=== PATIENT | male | born 1945 | race Caucasian/White ===

== ENCOUNTER 2016-05-10 09:12 | Day surgery (SDC) | payer MEDICARE, OTHER ==
[~2016-05-10] VITALS: Ht 177.8 cm; Wt 29.2 kg
[~2016-05-10 09:12] MED LIST: ASPIR-LOW81 MG PO; CEPHALEXIN500 M1 PO; CHANTIX1 MG PO; COMBIVENT INH14.7 GM IH; FLOMAX 0.40.4 MG/CAP PO; FORADIL IH; GENTAMICIN180 MG/501 NS; LIPITOR20 MG PO; MULTIVITAMIN PO; RT ADVAIR 228 DISKUS IH; SPIRIVA INH IH; ZYRTEC 10MG10 MG PO
[2016-05-10] MEDS ORDERED: COMBIRESP IH (10:28)
[2016-05-10 10:38] VITALS: BP 106/60; PULSE 76; TEMP 97.6
[2016-05-10] MEDS ORDERED: CARDIZEM CD 12120 MG PO (10:45)
[2016-05-10] MEDS ORDERED: SPIRIVA RE2.5 MCG/Ac IH (10:46)
[2016-05-10] MEDS ORDERED: ZITHROMAX 250M250 MG PO (10:49)
[2016-05-10] MEDS ORDERED: SALINE 45 ML45 ML NS (10:49)
[2016-05-10] MEDS ORDERED: ELIQUIS 5MG PO (10:50)
[2016-05-10 12:20] VITALS: BP 129/59; PULSE 80; TEMP 97.2
[2016-05-10 12:30] VITALS: BP 102/59; PULSE 80
[2016-05-10 12:45] VITALS: BP 106/52; PULSE 80
[2016-05-10 13:51] VITALS: BP 99/66; PULSE 80
== END 2016-05-10 13:07 | disposition home or self-care (01) ==
LOC: SDCO 09:12
DX: R06.02 Shortness of breath (principal); R05 Cough; R91.8 Other nonspecific abnormal finding of lung field; J44.9 Chronic obstructive pulmonary disease, unspecified; Z87.891 Personal history of nicotine dependence
CPT/HCPCS: J2704; J7030

== ENCOUNTER 2016-06-08 14:06 | Inpatient (IN) | payer MEDICARE, OTHER ==
[~2016-06-08] VITALS: Ht 177.8 cm; Wt 60.8 kg
[~2016-06-08 14:06] MED LIST changes: +CARDIZEM CD 12120 MG PO; +COMBIRESP IH; +ELIQUIS 5MG PO; +SALINE 45 ML45 ML NS; +SPIRIVA RE2.5 MCG/Ac IH; +ZITHROMAX 250M250 MG PO
[2016-06-08 15:10] VITALS: BP 137/74; PULSE 60
[2016-06-08] MEDS ORDERED: BREO IH (15:32)
[2016-06-08] MEDS ORDERED: SPIRIVA RE2.5 MCG/Ac IH (15:33)
[2016-06-08 17:22] LABS: ARTERIAL BLD GAS O2 SATURATION 96.5 % (92-100); ARTERIAL BLD GAS TCO2 CT 26.6; ARTERIAL BLOOD GAS BASE EXCESS 1.6 (-2-2); ARTERIAL BLOOD GAS HCO3 25.4 meq/L (22-26); ARTERIAL BLOOD GAS PHT 7.45 C (7.35-7.45); ARTERIAL BLOOD GAS PO2 83.2 mmHg (80-100); ARTERIAL BLOOD GAS PO2T 83.2 (80-100); ARTERIAL BLOOD GAS pH 7.45 (7.35-7.45); OXYHEMOGLOBIN 95.1 %
[2016-06-08 17:24] LABS: ALLEN TEST YES; ALLENS TEST RESULT PASS; ATS? YES
[2016-06-08 18:28] LABS: INFLUENZA B NEGATIVE
[2016-06-08 20:55] VITALS: BP 109/65; PULSE 81; TEMP 98.2
[2016-06-09] VITALS (7 sets, daily range): BP systolic 94–124; BP diastolic 55–78; PULSE 62–86; TEMP 97.4–98.6
[2016-06-10 04:10] VITALS: BP 97/57; PULSE 80; TEMP 97.7
[2016-06-10 07:40] VITALS: BP 106/70; PULSE 70; TEMP 97.5
[2016-06-10] MEDS ORDERED: LEVAQUIN 750MG750 M1 PO (10:39)
[2016-06-10] MEDS ORDERED: MUCINEX DM 30 M1 TE1 PO (10:40)
[2016-06-10] MEDS ORDERED: FLONASE NASAL S16 GM NS (10:41)
[2016-06-10] MEDS ORDERED: PREDNISONE20 MG PO (10:43)
[2016-06-10 11:40] VITALS: BP 104/58; PULSE 84; TEMP 97.5
== END 2016-06-10 14:00 | disposition home or self-care (01) | DRG 190 ==
LOC: MEDICAL 14:06
PROVIDERS: Internal Medicine
DX: J44.1 Chronic obstructive pulmonary disease with (acute) exacerbation (principal); J18.9 Pneumonia, unspecified organism; N40.0 Benign prostatic hyperplasia without lower urinary tract symptoms; I48.0 Paroxysmal atrial fibrillation; J84.10 Pulmonary fibrosis, unspecified; Z95.5 Presence of coronary angioplasty implant and graft; Z87.891 Personal history of nicotine dependence
CPT/HCPCS: 99232-AI; 99239; J0456; J0696; J2930; J7050

== ENCOUNTER 2017-06-11 12:12 | Inpatient (IN) | payer MEDICARE, OTHER ==
[2017-06-11] VITALS (496 sets, daily range): BP systolic 99–110; BP diastolic 66–73; PULSE 80–110; TEMP 97.5–97.9; O2SAT 81–100
[~2017-06-11] VITALS: Ht 177.8 cm; Wt 70.4 kg
[~2017-06-11 12:12] MED LIST changes: +BREO IH; +FLONASE NASAL S16 GM NS; +LEVAQUIN 750MG750 M1 PO; +MUCINEX DM 30 M1 TE1 PO; +PREDNISONE20 MG PO
[2017-06-11 15:58] LABS: BASO % 0.1 % (0.0-2.0); GRAN # 10.2 (1.4-6.5); GRAN % 88.7 % (42.2-75.2); HEMOGLOBIN 12.4 g/dl (13.5-18.0); LYMPH # 0.4 (1.2-3.4); MEAN CELL VOLUME 96 fl (80.0-100.0); MEAN CORPUSCULAR HEMOGLOBIN 33 pg (27.0-31.0); MEAN CORPUSCULAR HGB CONC 34 g/dl (33.0-37.0); MEAN PLATELET VOLUME 8.9 fl (7.4-10.4); MONO # 0.8 (0.1-0.6); MONO % 6.9 % (1.7-9.3); PLATELET COUNT 213 K/mm3 (130-400); RED BLOOD COUNT 3.79 M/mm3 (4.20-5.60); REDCELL DISTRIBUTION WIDTH-CV 12.4 % (11.5-14.5)
[2017-06-11 15:59] LABS: HEMATOCRIT 36.4 % (42.0-52.0)
[2017-06-11 16:03] LABS: INR 1.9 (0.8-3.0)
[2017-06-11 16:05] LABS: PARTIAL THROMBOPLASTIN TIME 30.5 SECONDS (26.0-37.0)
[2017-06-11 16:10] LABS: BILIRUBIN,TOTAL 0.6 mg/dL (0.0-1.0); CALCIUM 8.4 mg/dL (8.4-10.2); CREATININE, serum 0.62 mg/dL (0.66-1.25); MAGNESIUM 1.9 mg/dL (1.6-2.3); PHOSPHOROUS 2.5 mg/dL (2.5-4.5); POTASSIUM 5.2 mmol/L (3.4-5.0); TOTAL PROTEIN 5.2 gm/dL (6.4-8.2)
[2017-06-11 16:21] LABS: ARTERIAL BLD GAS O2 SATURATION 99.4 % (92-100); ARTERIAL BLD GAS TCO2 CT 29.2; ARTERIAL BLOOD GAS BASE EXCESS 3.5 (-2-2); ARTERIAL BLOOD GAS PO2 540.2 mmHg (80-100); ARTERIAL BLOOD GAS pH 7.44 (7.35-7.45)
[2017-06-11] MEDS ORDERED: COMBIRESP IH (17:42)
[2017-06-11] MEDS ORDERED: VITAMIN D31000 I1 PO (17:43)
[2017-06-11] MEDS ORDERED: ZITHROMAX 250M250 MG PO (17:45)
[2017-06-11] MEDS ORDERED: PROAIR HFA0.09 MG/AC IH (17:55)
[2017-06-11 18:09] LABS: ARTERIAL BLD GAS O2 SATURATION 98.4 % (92-100); ARTERIAL BLD GAS TCO2 CT 25.2; ARTERIAL BLOOD GAS BASE EXCESS -0.7 (-2-2); ARTERIAL BLOOD GAS PCO2 39.6 mmHg (35-45); ARTERIAL BLOOD GAS PO2 147.4 mmHg (80-100)
[2017-06-11 22:15] LABS: CREATININE, serum 0.66 mg/dL (0.66-1.25); POTASSIUM 5.5 mmol/L (3.4-5.0)
[2017-06-12] VITALS (1063 sets, daily range): BP systolic 70–109; BP diastolic 53–82; PULSE 51–89; TEMP 97.5–98.4; O2SAT 82–100
[2017-06-12 05:13] LABS: ARTERIAL BLD GAS O2 SATURATION 97.9 % (92-100); ARTERIAL BLD GAS TCO2 CT 25.6; ARTERIAL BLOOD GAS BASE EXCESS -1.3 (-2-2); ARTERIAL BLOOD GAS HCO3 24.2 meq/L (22-26); ARTERIAL BLOOD GAS PCO2 43.7 mmHg (35-45); ARTERIAL BLOOD GAS PO2 120.1 mmHg (80-100); ARTERIAL BLOOD GAS pH 7.36 (7.35-7.45)
[2017-06-12 05:58] LABS: CREATININE, serum 0.63 mg/dL (0.66-1.25); MAGNESIUM 1.9 mg/dL (1.6-2.3); PHOSPHOROUS 3.2 mg/dL (2.5-4.5)
[2017-06-13] VITALS (1005 sets, daily range): BP systolic 107–131; BP diastolic 57–80; PULSE 54–77; TEMP 97.8–98.7; O2SAT 76–100
[2017-06-13 04:47] LABS: ARTERIAL BLD GAS O2 SATURATION 98.3 % (92-100); ARTERIAL BLD GAS TCO2 CT 24.5; ARTERIAL BLOOD GAS BASE EXCESS -1.7 (-2-2); ARTERIAL BLOOD GAS HCO3 23.3 meq/L (22-26); ARTERIAL BLOOD GAS PCO2 40.4 mmHg (35-45); ARTERIAL BLOOD GAS pH 7.38 (7.35-7.45)
[2017-06-13 04:59] LABS: ARTERIAL BLOOD GAS PO2 136.5 mmHg (80-100)
[2017-06-13 05:27] LABS: MEAN CELL VOLUME 98 fl (80.0-100.0); MEAN CORPUSCULAR HGB CONC 34 g/dl (33.0-37.0); MEAN PLATELET VOLUME 9.4 fl (7.4-10.4); PLATELET COUNT 216 K/mm3 (130-400); RED BLOOD COUNT 3.47 M/mm3 (4.20-5.60); REDCELL DISTRIBUTION WIDTH-CV 12.8 % (11.5-14.5)
[2017-06-13 05:32] LABS: HEMATOCRIT 34.1 % (42.0-52.0); HEMOGLOBIN 11.5 g/dl (13.5-18.0); MEAN CORPUSCULAR HEMOGLOBIN 33 pg (27.0-31.0)
[2017-06-13 05:38] LABS: CALCIUM 7.9 mg/dL (8.4-10.2); CREATININE, serum 0.82 mg/dL (0.66-1.25); MAGNESIUM 2.2 mg/dL (1.6-2.3); PHOSPHOROUS 3.5 mg/dL (2.5-4.5)
[2017-06-13 05:42] LABS: BAND 13 % (0-10); LYMPHOCYTE 3 % (20.0-51.0); NEUTROPHILS 82 % (42.0-75.2); PLATELET ESTIMATE NORMAL (NORMAL)
[2017-06-13 05:45] LABS: PRE ALBUMIN 17.5 mg/dL (17.6-36.0)
[2017-06-14] VITALS (1411 sets, daily range): BP systolic 103–128; BP diastolic 64–83; PULSE 55–99; TEMP 97.8–99.4; O2SAT 95–100
[2017-06-14 05:17] LABS: ARTERIAL BLD GAS O2 SATURATION 97.9 % (92-100); ARTERIAL BLD GAS TCO2 CT 27.5; ARTERIAL BLOOD GAS BASE EXCESS -0.8 (-2-2); ARTERIAL BLOOD GAS HCO3 25.9 meq/L (22-26); ARTERIAL BLOOD GAS PCO2 51.6 mmHg (35-45); ARTERIAL BLOOD GAS pH 7.32 (7.35-7.45)
[2017-06-14 05:19] LABS: ARTERIAL BLOOD GAS PO2 131.3 mmHg (80-100)
[2017-06-14 05:44] LABS: CALCIUM 8.1 mg/dL (8.4-10.2); CREATININE, serum 0.72 mg/dL (0.66-1.25); MAGNESIUM 2.4 mg/dL (1.6-2.3)
[2017-06-14 20:22] LABS: ARTERIAL BLD GAS O2 SATURATION 97.8 % (92-100); ARTERIAL BLD GAS TCO2 CT 26.8; ARTERIAL BLOOD GAS BASE EXCESS -0.1 (-2-2); ARTERIAL BLOOD GAS HCO3 25.4 meq/L (22-26); ARTERIAL BLOOD GAS PCO2 45.2 mmHg (35-45); ARTERIAL BLOOD GAS PO2 118.3 mmHg (80-100); ARTERIAL BLOOD GAS pH 7.37 (7.35-7.45)
[2017-06-15] VITALS (1402 sets, daily range): BP systolic 104–141; BP diastolic 60–84; PULSE 52–130; TEMP 97.9–99.6; O2SAT 94–100
[2017-06-15 05:11] LABS: ARTERIAL BLD GAS O2 SATURATION 97.9 % (92-100); ARTERIAL BLD GAS TCO2 CT 29.5; ARTERIAL BLOOD GAS PCO2 49.5 mmHg (35-45); ARTERIAL BLOOD GAS PO2 126.2 mmHg (80-100); ARTERIAL BLOOD GAS pH 7.37 (7.35-7.45)
[2017-06-15 05:28] LABS: MEAN CELL VOLUME 98 fl (80.0-100.0); MEAN CORPUSCULAR HGB CONC 33 g/dl (33.0-37.0); MEAN PLATELET VOLUME 9.6 fl (7.4-10.4); PLATELET COUNT 218 K/mm3 (130-400); RED BLOOD COUNT 3.43 M/mm3 (4.20-5.60)
[2017-06-15 05:33] LABS: HEMATOCRIT 33.6 % (42.0-52.0); HEMOGLOBIN 11.2 g/dl (13.5-18.0); MEAN CORPUSCULAR HEMOGLOBIN 33 pg (27.0-31.0)
[2017-06-15 05:39] LABS: ALBUMIN 2.6 gm/dL (3.5-5.0); BILIRUBIN,TOTAL 0.1 mg/dL (0.0-1.0); CREATININE, serum 0.82 mg/dL (0.66-1.25); POTASSIUM 4.8 mmol/L (3.4-5.0); TOTAL PROTEIN 4.8 gm/dL (6.4-8.2)
[2017-06-15 06:08] LABS: ANISOCYTOSIS 2+; BAND 1 % (0-10); LYMPHOCYTE 6 % (20.0-51.0); NEUTROPHILS 93 % (42.0-75.2); PLATELET ESTIMATE NORMAL (NORMAL)
[2017-06-16] VITALS (969 sets, daily range): BP systolic 112–147; BP diastolic 21–83; PULSE 60–144; TEMP 97.3–97.4; O2SAT 74–100
[2017-06-16 05:10] LABS: ARTERIAL BLD GAS O2 SATURATION 88.7 % (92-100); ARTERIAL BLD GAS TCO2 CT 26.4; ARTERIAL BLOOD GAS HCO3 24.9 meq/L (22-26); ARTERIAL BLOOD GAS PCO2 46.5 mmHg (35-45); ARTERIAL BLOOD GAS PO2 58.4 mmHg (80-100); ARTERIAL BLOOD GAS pH 7.35 (7.35-7.45)
[2017-06-16 05:50] LABS: HEMATOCRIT 37.4 % (42.0-52.0); HEMOGLOBIN 12.3 g/dl (13.5-18.0); MEAN CELL VOLUME 99 fl (80.0-100.0); MEAN CORPUSCULAR HEMOGLOBIN 33 pg (27.0-31.0); MEAN CORPUSCULAR HGB CONC 33 g/dl (33.0-37.0); MEAN PLATELET VOLUME 9.8 fl (7.4-10.4); PLATELET COUNT 269 K/mm3 (130-400); RED BLOOD COUNT 3.79 M/mm3 (4.20-5.60); REDCELL DISTRIBUTION WIDTH-CV 13.2 % (11.5-14.5)
[2017-06-16 06:01] LABS: CALCIUM 8.3 mg/dL (8.4-10.2); CREATININE, serum 0.77 mg/dL (0.66-1.25); POTASSIUM 4.6 mmol/L (3.4-5.0)
[2017-06-16 06:09] LABS: BAND 6 % (0-10); LYMPHOCYTE 6 % (20.0-51.0); NEUTROPHILS 86 % (42.0-75.2); PLATELET ESTIMATE NORMAL (NORMAL)
== END 2017-06-18 06:08 | disposition expired | DRG 208 ==
LOC: IMCU 12:12 → ICU 13:05 → MEDICAL 06-16 17:20
PROVIDERS: Family Medicine; Internal Medicine Pulmonary Disease
PROC: 5A1945Z Respiratory Ventilation, 24-96 Consecutive Hours (ICD-10-PCS; principal; 2017-06-11)
PROC: 5A2204Z Restoration of Cardiac Rhythm, Single (ICD-10-PCS; 2017-06-12)
DX: J96.01 Acute respiratory failure with hypoxia (principal); J18.9 Pneumonia, unspecified organism; J44.1 Chronic obstructive pulmonary disease with (acute) exacerbation; G72.81 Critical illness myopathy; I48.92 Unspecified atrial flutter; E44.0 Moderate protein-calorie malnutrition; J44.0 Chronic obstructive pulmonary disease with (acute) lower respiratory infection; Z66 Do not resuscitate; Z51.5 Encounter for palliative care; J96.02 Acute respiratory failure with hypercapnia; I25.10 Atherosclerotic heart disease of native coronary artery without angina pectoris; E87.5 Hyperkalemia; I48.2 Chronic atrial fibrillation; Z95.5 Presence of coronary angioplasty implant and graft; Z87.891 Personal history of nicotine dependence
CPT/HCPCS: 99223-AI; 99231-AI; 99232-AI; 99233-AI; C1751; J0456; J0692; J1644; J1650; J1940; J2060; J2270; J2704; J2930; J3010; J3370; J7030; J7050